=== PATIENT | male | born 1955 | race Caucasian/White ===

== ENCOUNTER 2017-12-01 21:04 | Emergency (ER) | payer OTHER ==
[~2017-12-01] VITALS: Ht 188 cm; Wt 127.3 kg
[2017-12-01 21:49] LABS: BASO % 0.3 % (0.0-2.0); EOS % 3.4 % (0-4.0); HEMATOCRIT 42.8 % (42.0-52.0); HEMOGLOBIN 14.7 g/dl (13.5-18.0); MEAN CELL VOLUME 92 fl (80.0-100.0); MEAN CORPUSCULAR HEMOGLOBIN 32 pg (27.0-31.0); MEAN CORPUSCULAR HGB CONC 34 g/dl (33.0-37.0); MEAN PLATELET VOLUME 9.6 fl (7.4-10.4); PLATELET COUNT 152 K/mm3 (130-400); RED BLOOD COUNT 4.66 M/mm3 (4.20-5.60); REDCELL DISTRIBUTION WIDTH-CV 13.6 % (11.5-14.5)
[2017-12-01] MEDS ORDERED: TAMBOCOR150 MG PO (21:53)
[2017-12-01] MEDS ORDERED: CARDURA 8MG TAB8 MG PO (21:54)
[2017-12-01] MEDS ORDERED: MOBIC15 MG PO (21:54)
[2017-12-01] MEDS ORDERED: COREG12.5 MG PO (21:54)
[2017-12-01] MEDS ORDERED: PRINIVIL40 MG PO (21:55)
[2017-12-01] MEDS ORDERED: CRESTOR20 MG PO (21:55)
[2017-12-01] MEDS ORDERED: ASPIRIN 81M81 MG/TA2 PO (21:56)
[2017-12-01] MEDS ORDERED: ZYRTEC 10MG10 MG PO (21:57)
[2017-12-01 22:05] LABS: ALANINE AMINOTRANSFERASE 40 U/L (21-72); ALBUMIN 4.2 gm/dL (3.5-5.0); ALKALINE PHOSPHATASE 61 U/L (50-136); ANION GAP 11 mmol/L (7-16); AST,SGOT 24 U/L (15-37); BILIRUBIN,TOTAL 0.7 mg/dL (0.0-1.0); BLOOD UREA NITROGEN 17 mg/dL (9-20); C-REACTIVE PROTEIN < 0.5 mg/dL (0.0-0.9); CALCIUM 9.5 mg/dL (8.4-10.2); CARBON DIOXIDE 23 mmol/L (22-30); CHLORIDE 103 mmol/L (98-107); CREATININE, serum 0.88 mg/dL (0.66-1.25); GLUCOSE 104 mg/dL (74-106); SODIUM 138 mmol/L (137-145); TOTAL PROTEIN 6.9 gm/dL (6.4-8.2)
[2017-12-01] MEDS ORDERED: TESTIM1% (22:05)
[2017-12-01 22:15] LABS: BAND 6 % (0-10); BASOPHIL 1 % (0-2); EOSINOPHIL 3 % (0-4); LYMPHOCYTE 5 % (20.0-51.0); NEUTROPHILS 78 % (42.0-75.2); PLATELET ESTIMATE NORMAL (NORMAL)
[2017-12-01 22:38] VITALS: TEMP 99.2
[2017-12-01 22:45] VITALS: BP 177/89; PULSE 76
[2017-12-01] MEDS ORDERED: DOXYCYCLINE 10100 MG PO (22:45)
[2017-12-01] MEDS ORDERED: TAMIFLU 75MG75 MG PO (22:45)
== END 2017-12-01 23:02 | disposition home or self-care (01) ==
LOC: COL.ER 21:04
PROVIDERS: Emergency Medicine
DX: J18.1 Lobar pneumonia, unspecified organism (principal); I10 Essential (primary) hypertension; I48.91 Unspecified atrial fibrillation; Z79.82 Long term (current) use of aspirin

== ENCOUNTER → 2023-11-27 | Outpatient (CLI) | payer MEDICARE, BC ==
[~2023-11-27] MED LIST: ASPIRIN 81M81 MG/TA2 PO; CARDURA 8MG TAB8 MG PO; COREG12.5 MG PO; CRESTOR20 MG PO; DOXYCYCLINE 10100 MG PO; MOBIC15 MG PO; PRINIVIL40 MG PO; TAMBOCOR150 MG PO; TAMIFLU 75MG75 MG PO; TESTIM1%; ZYRTEC 10MG10 MG PO
== END ==
LOC: COL.RAD 13:26
DX: N50.3 Cyst of epididymis (principal); K46.9 Unspecified abdominal hernia without obstruction or gangrene; N50.89 Other specified disorders of the male genital organs